=== PATIENT | male | born 1945 ===

== ENCOUNTER → 2017-01-10 | Outpatient (CLI) | payer MEDICARE ==
[~2017-01-10] VITALS: Ht 182.9 cm; Wt 89.0 kg
[~2017-01-10] MED LIST: ACET-784 PO; ADV250 IH; ALPR0.255 PO; APIX5TAB PO; ATOR40TA28 PO; AUD NEB; BISA10S PR; DIGO125T PO; DSS100 PO; ESCI10TA PO; FE RC; FINA5TAB41 PO; GUAI600T35 PO; HYDR-3965 PO; INSNOV SQ; METO25 PO; PANT40TA25 PO; PRED10 PO; TIOT185 IH
[2017-01-10 11:13] VITALS: BP 114/52
== END | disposition home or self-care (01) ==
LOC: SRCNTR 11:05
PROVIDERS: ATTEND Internal Medicine Critical Care Medicine
DX: J96.21 Acute and chronic respiratory failure with hypoxia (principal); J44.1 Chronic obstructive pulmonary disease with (acute) exacerbation; R91.1 Solitary pulmonary nodule; I48.91 Unspecified atrial fibrillation; I50.9 Heart failure, unspecified; I34.0 Nonrheumatic mitral (valve) insufficiency; I27.2 Other secondary pulmonary hypertension; N40.0 Benign prostatic hyperplasia without lower urinary tract symptoms; Z95.810 Presence of automatic (implantable) cardiac defibrillator; Z98.890 Other specified postprocedural states
CPT/HCPCS: G0463

== ENCOUNTER → 2017-02-09 | Outpatient (CLI) | payer MEDICARE ==
[2017-02-09 11:19] VITALS: BP 99/56
== END | disposition home or self-care (01) ==
LOC: SRCNTR 11:17
PROVIDERS: ATTEND Internal Medicine Critical Care Medicine
DX: J96.21 Acute and chronic respiratory failure with hypoxia (principal); J44.1 Chronic obstructive pulmonary disease with (acute) exacerbation; R91.1 Solitary pulmonary nodule; I48.91 Unspecified atrial fibrillation; I50.9 Heart failure, unspecified; I27.2 Other secondary pulmonary hypertension; I34.0 Nonrheumatic mitral (valve) insufficiency; Z95.810 Presence of automatic (implantable) cardiac defibrillator; Z98.890 Other specified postprocedural states
CPT/HCPCS: G0463

== ENCOUNTER → 2017-02-16 | Outpatient (CLI) | payer MEDICARE ==
[~2017-02-16] MED LIST changes: -BISA10S PR; -DSS100 PO; -ESCI10TA PO; -FE RC; -FINA5TAB41 PO; -INSNOV SQ
== END | disposition home or self-care (01) ==
LOC: RADMN 12:40
PROVIDERS: ATTEND Internal Medicine Critical Care Medicine
DX: J43.2 Centrilobular emphysema (principal); J42 Unspecified chronic bronchitis; I70.0 Atherosclerosis of aorta; I25.10 Atherosclerotic heart disease of native coronary artery without angina pectoris; K44.9 Diaphragmatic hernia without obstruction or gangrene; R91.8 Other nonspecific abnormal finding of lung field; J98.4 Other disorders of lung; D71 Functional disorders of polymorphonuclear neutrophils
CPT/HCPCS: 71250

== ENCOUNTER → 2017-03-13 | Outpatient (CLI) | payer MEDICARE, MEDICAID ==
[~2017-03-13] VITALS: Ht 182.9 cm; Wt 93.0 kg
[2017-03-13 13:18] VITALS: BP 108/54
== END | disposition home or self-care (01) ==
LOC: SRCNTR 12:47
PROVIDERS: ATTEND Internal Medicine Critical Care Medicine
DX: J96.21 Acute and chronic respiratory failure with hypoxia (principal); J44.1 Chronic obstructive pulmonary disease with (acute) exacerbation; I48.91 Unspecified atrial fibrillation; R91.1 Solitary pulmonary nodule; I50.9 Heart failure, unspecified; I34.0 Nonrheumatic mitral (valve) insufficiency; I27.2 Other secondary pulmonary hypertension; Z95.810 Presence of automatic (implantable) cardiac defibrillator; Z98.890 Other specified postprocedural states; Z87.891 Personal history of nicotine dependence
CPT/HCPCS: G0463

== ENCOUNTER → 2017-06-21 | Outpatient (CLI) | payer MEDICARE, MEDICAID ==
[~2017-06-21] VITALS: Ht 182.9 cm; Wt 90.0 kg
[~2017-06-21] MED LIST changes: -HYDR-3965 PO; +HYDR-4061 PO
[2017-06-21 13:01] VITALS: BP 77/34
== END | disposition home or self-care (01) ==
LOC: SRCNTR 12:31
PROVIDERS: ATTEND Internal Medicine Critical Care Medicine
DX: J96.21 Acute and chronic respiratory failure with hypoxia (principal); J44.1 Chronic obstructive pulmonary disease with (acute) exacerbation; I48.91 Unspecified atrial fibrillation; I50.9 Heart failure, unspecified; R91.1 Solitary pulmonary nodule; I34.0 Nonrheumatic mitral (valve) insufficiency; I27.0 Primary pulmonary hypertension; Z95.810 Presence of automatic (implantable) cardiac defibrillator; Z87.891 Personal history of nicotine dependence
CPT/HCPCS: G0463

== ENCOUNTER → 2018-09-03 | Outpatient (CLI) | payer MEDICARE, MEDICAID ==
[~2018-09-03] VITALS: Ht 182.9 cm; Wt 80.0 kg
[~2018-09-03] MED LIST changes: +DIGO-44 PO; -DIGO125T PO; +FURO20 PO
[2018-09-03 14:45] VITALS: BP 76/47
== END | disposition home or self-care (01) ==
LOC: SRCNTR 13:46
PROVIDERS: ATTEND Internal Medicine Critical Care Medicine
DX: J44.1 Chronic obstructive pulmonary disease with (acute) exacerbation (principal); J96.21 Acute and chronic respiratory failure with hypoxia; I50.20 Unspecified systolic (congestive) heart failure; I48.91 Unspecified atrial fibrillation; I27.20 Pulmonary hypertension, unspecified; I34.0 Nonrheumatic mitral (valve) insufficiency; R91.1 Solitary pulmonary nodule; Z95.810 Presence of automatic (implantable) cardiac defibrillator
CPT/HCPCS: G0463